=== PATIENT | female | born 1965 | race Caucasian/White ===

== ENCOUNTER 2025-01-26 07:40 | Day surgery (SDC) | payer OTHER ==
[2025-01-26] MEDS: Lactated Ringers 1,000 ML IV SCH (07:54)
[2025-01-26] MEDS ORDERED: fentaNYL 100 MCG/2 ML SDV ONE (08:44)
[2025-01-26] MEDS ORDERED: Propofol 200 MG/20 ML SDV ONE ×2 (08:44→10:03)
[2025-01-26] MEDS ORDERED: Ondansetron 4 MG/2 ML SDV ONE (09:55)
[2025-01-26] MEDS ORDERED: Dexamethasone 10 MG/ML SDV ONE (09:55)
[2025-01-26 10:50] VITALS: BP 96/56; PULSE 67
== END 2025-01-26 11:10 | disposition home or self-care (01) ==
LOC: VM.SDS 07:40
PROVIDERS: ATTEND Student in an Organized Health Care Education/Training Program
DX: Z12.11 Encounter for screening for malignant neoplasm of colon (principal); D12.3 Benign neoplasm of transverse colon; I10 Essential (primary) hypertension; E66.9 Obesity, unspecified; E03.9 Hypothyroidism, unspecified; F17.210 Nicotine dependence, cigarettes, uncomplicated; Z88.8 Allergy status to other drugs, medicaments and biological substances; Z88.1 Allergy status to other antibiotic agents; Z68.33 Body mass index [BMI] 33.0-33.9, adult; Z79.890 Hormone replacement therapy; Z79.899 Other long term (current) drug therapy; Z86.0100 Personal history of colon polyps, unspecified
CPT/HCPCS: 00811; J1100; J2405; J2704; J2765; J3010; J7120